=== PATIENT | male | born 1960 | race Caucasian/White ===

== ENCOUNTER 2016-11-13 19:22 | Emergency (ER) | payer BC ==
[2016-11-13 20:50] VITALS: BP 149/76
--- NOTE | 2016-11-13 21:12 | RAD ---
Indication: Patellar region swelling and bruising post fall. Comparison: None. Technique: AP, tunnel, lateral, and sunrise views RIGHT knee Report: Significant soft tissue swelling most confluent anterior to the patella with involvement of the more cephalad and caudal anterior subcutaneous fat and likely the infrapatellar fat pad. Probable trace joint effusion. Negative for fracture or malalignment. Small enthesophyte at the lateral proximal tibia. IMPRESSION: Anterior soft tissue swelling and potential loculated hematoma within the subcutaneous tissue plane versus bursal fluid collection. Probable trace joint effusion. Negative for fracture.
--- NOTE | 2016-11-28 11:58 | UC ---
Knee Pain HPI - HPI Summary HPI Summary: pt tripped over a box and fell on his right knee. able to bear weight with no problem. only superficial pain when bending knee - skin over patella abraided and sharply painful with motion especially if he has not moved in a while. bruised, swollen. - History of Current Complaint Chief Complaint: UCLowerExtremity Stated Complaint: FELL-RT KNEE INJURY Time Seen by Provider: 11/13/16 20:45 Hx Obtained From: Patient Onset/Duration: Sudden Onset, Lasting Hours, Still Present Severity Initially: Moderate Severity Currently: Moderate Location Of Injury: rt knee Pain Intensity: 4 Pain Scale Used: 0-10 Numeric Character: Sharp Aggravating Factor(s): Movement - after rest as skin breaks oen again Alleviating Factor(s): Nothing Associated Signs And Symptoms: Positive: Swelling, Bruising. Negative: Redness , Fever, Weakness, Numbness, Tingling Able to Bear Weight: Yes - Allergies/Home Medications Allergies/Adverse Reactions: Allergies Allergy/AdvReac Type Severity Reaction Status Date / Time Bee Venom Allergy Severe Anaphylatic Verified 11/13/16 20:32 Shock Home Medications: Home Medications Glipizide [Glucotrol] 1 tab PO BID 11/13/16 [History Confirmed 11/13/16] Losartan/HCTZ 100/25 (NF) [Hyzaar 100/25 (NF)] 1 tab PO DAILY 11/13/16 [History Confirmed 11/13/16] Ranitidine HCl 1 cap PO DAILY 11/13/16 [History Confirmed 11/13/16] PMH/Surg Hx/FS Hx/Imm Hx - Additional Past Medical History Additional PMH: lupus Endocrine History Of: Reports: Diabetes Cardiovascular History Of: Reports: Hypertension GI/ History Of: Reports: Gastroesophageal Reflux - Surgical History Surgical History: Yes Surgery Procedure, Year, and Place: APPY. CARPAL TUNNEL B/L. HERN[facility]. right roatator cuff repain - Family History Known Family History: Positive: Hypertension Negative: Cardiac Disease, Diabetes - Social History Lives: With Family Alcohol Use: Rare Substance Use Type: None Smoking Status (MU): Never Smoked Tobacco Amount Used/How Often: 1/2can/day Cessation Counseling: Patient Advised to Stop - Immunization History Most Recent Influenza Vaccination: Not the Season Review of Systems Constitutional: Negative Skin: Negative Eyes: Negative ENT: Negative Respiratory: Negative Cardiovascular: Negative Gastrointestinal: Negative Genitourinary: Negative Motor: Negative Neurovascular: Negative Musculoskeletal: Arthralgia Neurological: Negative Psychological: Negative All Other Systems Reviewed And Are Negative: Yes Physical Exam Triage Information Reviewed: Yes Appearance: Well-Appearing, Well-Nourished, Pain Distress - mild with knee flexion Vital Signs: Initial Vital Signs Temp 99.0 F 11/13/16 20:42 Pulse 84 11/13/16 20:42 Resp 16 11/13/16 20:42 BP 149/76 11/13/16 20:42 Pulse Ox 97 11/13/16 20:42 Vital Signs Reviewed: Yes Eyes: Positive: Conjunctiva Clear. Negative: Discharge ENT: Positive: Hearing grossly normal. Negative: Muffled/hoarse voice Neck: Positive: Supple Respiratory: Positive: Lungs clear, Normal breath sounds, No respiratory distress, No accessory muscle use Cardiovascular: Positive: RRR, No Murmur Musculoskeletal: Positive: Strength Intact, ROM Intact, Other: - tender to palation over patella, no lig laxitity, positive laura's Neurological: Positive: Alert, Muscle Tone Normal Psychological: Positive: Age Appropriate Behavior Skin: Positive: Other - abraision, bruising and swelling over patella over knee Knee Pain Course/Dx - Differential Dx/Diagnosis Differential Diagnosis/HQI/PQRI: Abrasion, Contusion, Internal Derangement Of Knee, Sprain Provider Diagnoses: abraision, swollen knee, possible internal derrangement of knee, hematoma Discharge - Discharge Plan Condition: Stable Disposition: HOME Patient Education Materials: Abrasion (ED), Swollen Knee Joint (ED), Hematoma ( ED) Referrals: GLORIA Zepeda [Primary Care Provider] - 5 Days Additional Instructions: REMEMBER TO FOLLOW UP WITH YOUR PCP ON THE KNEE JOINT SWELLING, ESPECIALLY IF YOUR SYMPTOMS ARE WORSENING TO FAILING TO IMPROVE. tHERE IS ALWAYS THE POSSIBLITY OF A HIDDEN FRACTURE. GOOD LUCK WITH THE MAPLE FESTIVAL.
== END 2016-11-13 22:08 | disposition home or self-care (01) ==
LOC: UCCORT 19:22
DX: S80.211A Abrasion, right knee, initial encounter (principal); W18.09XA Striking against other object with subsequent fall, initial encounter; Y93.9 Activity, unspecified; Y92.9 Unspecified place or not applicable; M25.461 Effusion, right knee; E11.9 Type 2 diabetes mellitus without complications; I10 Essential (primary) hypertension; K21.9 Gastro-esophageal reflux disease without esophagitis; F17.220 Nicotine dependence, chewing tobacco, uncomplicated
CPT/HCPCS: 99211; G0463